=== PATIENT | female | born 1950 | race Caucasian/White ===

== ENCOUNTER → 2018-08-27 | Outpatient (CLI) | payer OTHER, MEDICAID ==
--- NOTE | 2018-08-27 15:16 | 2DMMODE ---
[place] [id number] 2 D/M-MODE ECHOCARDIOGRAM Name: SHELLIE MONTAGUE Room: [facility]#: [id number] Admission: 08/27/18 Attend Phys: Jey Akins, Discharge: Date of : 46 Date of Service: 08/27/18 1516 Report #: [id number] THIS REPORT FOR: //name// APPROVED REPORT Study performed: 08/27/2018 13:47:34 EXAM: Comprehensive 2D, Doppler, and color-flow Echocardiogram Patient Location: Out-Patient BSA: 1.78 HR: 85 bpm BP: 136/78 mmHg Other Information Study Quality: Good Indications Congestive Heart Failure 2D Dimensions IVSd: 11.87 (7-11mm) LVOT Diam: 20.37 (18-24mm) LVDd: 49.09 mm PWd: 11.77 (7-11mm) Ascending Ao: 29.82 (22-36mm) LVDs: 29.93 (25-40mm) Aortic Root: 25.63 mm Volumes Left Atrial Volume (Systole) LA ESV Index: 37.30 mL/m2 Aortic Valve AoV Peak Kike.: 1.39 m/s AO Peak Gr.: 7.70 mmHg LVOT Max P.78 mmHg AO Mean Gr.: 4.57 mmHg LVOT Mean P.43 mmHg LVOT Max V: 0.83 m/s AO V2 VTI: 23.44 cm LVOT Mean V: 0.55 m/s ANA (VTI): 2.24 cm2 LVOT V1 VTI: 16.08 cm Mitral Valve MV Decel. Time: 232.06 ms MV PHT: 67.30 ms MVA (PHT): 3.27 [place] [id number] 2 D/M-MODE ECHOCARDIOGRAM Name: SHELLIE MONTAGUE Room: [facility]#: [id number] Admission: 08/27/18 Attend Phys: Jey Akins, Discharge: Date of : 46 Date of Service: 08/27/18 1516 Report #: [id number] Medial E' Kike.: 0.07 m/s Lateral E' Kike.: 0.10 m/s Pulmonary Valve PV Peak Kike.: 1.19 m/s PV Peak Gr.: 5.62 mmHg Tricuspid Valve RAP Estimate: 5.00 mmHg TR Peak Gr.: 31.70 mmHg RVSP: 36.70 mmHg PA Pressure: 36.70 mmHg Left Ventricle The left ventricle is normal size. There is normal LV segmental wall motion. Mild concentric left ventricular hypertrophy. Left ventricular systolic function is normal. LVEF is 55-60%. This study is not technically sufficient to allow evaluation of the LV diastolic function due to atrial fibrillation. Right Ventricle The right ventricle is normal size. The right ventricular systolic function is normal. Atria Left atrium is moderately dilated. Right atrium is mildly dilated. Aortic Valve The aortic valve is normal in structure. Mild aortic regurgitation. There is no aortic valvular stenosis. Mitral Valve The mitral valve is normal in structure. Mild mitral regurgitation. No evidence of mitral valve stenosis. Tricuspid Valve The tricuspid valve is normal in structure. Mild tricuspid regurgitation. The RVSP is 35-40 mmHg. Pulmonic Valve The pulmonary valve is normal in structure. Mild pulmonic regurgitation. Great Vessels The aortic root is normal in size. IVC is normal in size and collapses >50% [place] [id number] 2 D/M-MODE ECHOCARDIOGRAM Name: SHELLIE MONTAGUE Room: [facility]#: [id number] Admission: 08/27/18 Attend Phys: Jey Akins, Discharge: Date of : 46 Date of Service: 08/27/18 1516 Report #: [id number] Pericardium There is no pericardial effusion. <Conclusion> The left ventricle is normal size. Mild concentric left ventricular hypertrophy. Left ventricular systolic function is normal. LVEF is 55-60%. Left atrium is moderately dilated. Right atrium is mildly dilated. Mild aortic regurgitation. Mild mitral regurgitation. Mild tricuspid regurgitation. The RVSP is 35-40 mmHg. <ELECTRONICALLY SIGNED> By: Jey Akins MD, FACC 08/27/18 151 15 15 Jey Akins MD, FACC /INF
== END ==
LOC: M.CRD 07-29 11:00
DX: I08.8 Other rheumatic multiple valve diseases (principal); I50.22 Chronic systolic (congestive) heart failure; R22.1 Localized swelling, mass and lump, neck

== ENCOUNTER 2018-12-16 15:20 | Emergency (ER) | payer OTHER, MEDICAID ==
[~2018-12-16] VITALS: Ht 165.1 cm; Wt 88.9 kg
[2018-12-16] MEDS ORDERED: CARVEDILOL12.5 MG PO (15:52)
[2018-12-16] MEDS ORDERED: DIGOXIN125 MCG PO (15:52)
[2018-12-16] MEDS ORDERED: COZAAR 25 MG TA25 M2 PO (15:53)
[2018-12-16] MEDS ORDERED: MAGOX 400400 MG PO (15:53)
[2018-12-16] MEDS ORDERED: LANTUS100 UNIT/M SUBQ (15:53)
[2018-12-16] MEDS ORDERED: NOVOLOG100 UNIT/1 SUBQ (15:53)
[2018-12-16] MEDS ORDERED: FISH OIL 1,001000 M2 PO (15:54)
[2018-12-16] MEDS ORDERED: MULTIPLE VITAM1 EAC2 PO (15:54)
[2018-12-16] MEDS ORDERED: DITROPAN XL5 M1 PO (15:54)
[2018-12-16] MEDS ORDERED: ZANTAC 150MG T150 MG PO (15:54)
[2018-12-16] MEDS ORDERED: SIMVASTATIN40 MG PO (15:55)
[2018-12-16] MEDS ORDERED: XARELTO20 MG PO (15:55)
[2018-12-16] MEDS ORDERED: CENTANY30 GM TOP (16:05)
[2018-12-16 17:52] VITALS: BP 146/50
== END 2018-12-16 17:53 | disposition home or self-care (01) ==
LOC: M.ERS 15:20
DX: S60.221A Contusion of right hand, initial encounter (principal); S50.02XA Contusion of left elbow, initial encounter; S50.811A Abrasion of right forearm, initial encounter; I10 Essential (primary) hypertension; E11.9 Type 2 diabetes mellitus without complications; I25.2 Old myocardial infarction; Z86.73 Personal history of transient ischemic attack (TIA), and cerebral infarction without residual deficits; Z90.710 Acquired absence of both cervix and uterus; Z79.4 Long term (current) use of insulin; Z88.5 Allergy status to narcotic agent; V89.2XXA Person injured in unspecified motor-vehicle accident, traffic, initial encounter; Y92.89 Other specified places as the place of occurrence of the external cause; Y93.89 Activity, other specified; Y99.8 Other external cause status